=== PATIENT | male | born 1990 | race Caucasian/White ===

== ENCOUNTER 2024-05-20 23:33 | Emergency (ER) | payer BC, SELFPAY ==
[2024-05-20 23:38] VITALS: BP 138/97; PULSE 99; RESP 16; TEMP 36.6; O2SAT 98; BMI 25.8
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
[2024-05-21 00:03] LABS: Basophils Percent Auto 0.3 % (0.0-3.0); Eosinophils Percent Auto 0.4 % (0.0-7.0); Hematocrit 46.1 % (37.0-53.0); Hemoglobin* 15.3 gm/dL (13.5-17.5); Immature Granulocytes Pct Auto 0.2 %; Lymphocytes Percent Auto 12.6 % (20-44); Mean Corpuscular HGB Conc 33 gm/dL (32-36); Mean Corpuscular Hemoglobin 31 pg (26-34); Mean Corpuscular Volume 95 fL (80-100); Neutrophils Percent Auto 79.5 % (42.0-72.0); Platelet Count* 243 K/uL (140-440); RDW Coefficient of Variation % 13.8 % (11.5-15.5); Red Blood Count 4.87 m/uL (4.30-5.90)
[2024-05-21 00:05] LABS: Slide Review Reflex No
[2024-05-21] MEDS: HYDROmorphone 0.5 mg/0.5 ml inj IVP ×2 (00:10→00:51)
[2024-05-21 00:15] LABS: Chloride* 106 mmol/L (96-114); Potassium* 3.8 mmol/L (3.6-5.1); Sodium* 139 mmol/L (135-149)
[2024-05-21 00:18] LABS: Anion Gap 9 mEq/L (7-15); Blood Urea Nitrogen* 15 mg/dL (5-24); Carbon Dioxide* 24 mmol/L (20-32); Creatinine* 0.9 mg/dL (0.5-1.5); Est. Creatinine Clearance* 114.56; Estimated Glomerular Filt Rate 114 ml/min; Glucose* 102 mg/dL (60-115)
[2024-05-21 00:19] LABS: Calcium* 8.7 mg/dL (8.4-10.6)
[2024-05-21] MEDS: CEFAZOLIN 1 GM in 0.9 % SODIUM CHLORIDE Mini-bag 100 ML IVPB (00:37)
[2024-05-21 01:42] VITALS: BP 125/83; PULSE 707; RESP 16
== END 2024-05-21 01:30 | disposition home or self-care (01) ==
LOC: ED 05-21 01:23
PROVIDERS: Emergency Provider Family Medicine
DX: S91.012A Laceration without foreign body, left ankle, initial encounter (principal); S00.03XA Contusion of scalp, initial encounter; S90.32XA Contusion of left foot, initial encounter; V19.3XXA Pedal cyclist (driver) (passenger) injured in unspecified nontraffic accident, initial encounter; S92.515A Nondisplaced fracture of proximal phalanx of left lesser toe(s), initial encounter for closed fracture
CPT/HCPCS: 12001; 36415; 70450; 73590; 73610; 73630; 80048; 85025; 96365; 96375; 99284; J0690; J1170